=== PATIENT | female | born 1980 | race Caucasian/White ===

== ENCOUNTER 2016-11-07 18:38 | Emergency (ER) | payer SELFPAY ==
[~2016-11-07] VITALS: Ht 162.6 cm; Wt 79.5 kg
[~2016-11-07 18:38] MED LIST: CYCL-36 PO; HYDR-3533 PO
[2016-11-07 18:41] VITALS: BP 165/77; PULSE 110; RESP 14; TEMP 97.6; O2SAT 98
--- NOTE | 2016-11-07 18:54 | PD ---
HPI Chief Complaint: Injury Time Seen by Provider: 18:52 Travel History International Travel<30 days: No Contact w/Intl Traveler<30days: No Traveled to known affect area: No History of Present Illness HPI 36-year-old female presents to the emergency department for evaluation of left ankle and foot injury that occurred today. Patient states that she twisted her ankle and fell. She denies any other injury. No head injury or LOC. No neck pain or back pain. No chest pain or abdominal pain. No vomiting. Patient denies any chronic medical problems or taking any prescribed medications. PFSH Past Medical History Diabetes: No Diminished Hearing: No Immunizations Current: Yes ?: Not LMP: 11/06/2016 : 2 Para: 1 : 1 Past Surgical History Section: Yes Gynecologic Surgery: Yes (C SECTIONS) Hysterectomy: No (TUBES TIED) Social History Alcohol Use: Yes (1-2 times per month) Tobacco Use: No (quit 1 mo ago) Substance Use: No Allergies-Medications (Allergen,Severity, Reaction): Coded Allergies: Penicillin (Verified Allergy, Severe, UNKNOWN, 05/14/16) Reported Meds & Prescriptions Reported Meds & Active Scripts Active No Active Prescriptions or Reported Medications Review of Systems Except as stated in HPI: all other systems reviewed are Neg Physical Exam Narrative GENERAL: Well-developed well-nourished female patient, afebrile. SKIN: Warm and dry. HEAD: Normocephalic. Atraumatic. EYES: No scleral icterus. No injection or drainage. NECK: Supple, trachea midline. No JVD or lymphadenopathy. CARDIOVASCULAR: Regular rate and rhythm without murmurs, gallops, or rubs. Left pedal pulse is 2+. Capillary refill is less than 2 seconds to the digits of the left foot. RESPIRATORY: Breath sounds equal bilaterally. No accessory muscle use. Lungs sounds clear to auscultation. GASTROINTESTINAL: Abdomen soft, non-tender, nondistended. MUSCULOSKELETAL: No cyanosis, or edema. Patient has tenderness over left medial , lateral, anterior ankle and left dorsal foot. Negative Hebert's test. BACK: Nontender without obvious deformity. No CVA tenderness. Data Data Last Documented VS Vital Signs Date Time Temp Pulse Resp B/P Pulse Ox O2 Delivery O2 Flow Rate FiO2 11/07/16 18:41 97.6 110 14 165/77 98 Room Air Orders Foot, Complete (Jpw4esp) (11/07/16 ) Ankle, Complete ([id number]) (11/07/16 ) Acetamin-Hydrocod 325-5 Mg ([place] 5-325 (11/07/16 19:00) MDM Medical Decision Making Medical Screen Exam Complete: Yes Emergency Medical Condition: Yes Medical Record Reviewed: Yes Differential Diagnosis Sprain versus fracture versus contusion versus dislocation Narrative Course 36-year-old female presents to the emergency department for evaluation of left ankle and foot injury. X-ray left ankle and left foot are ordered and pending. X-ray of the left ankle and left foot were read by my attending physician, Dr. Ochoa. No acute abnormality is seen on x-ray. Patient is placed in a velcro ankle splint and given crutches. She will be discharged with a prescription for Ibuprofen. She is instructed to ice and elevate. She is to follow up with a primary care physician or orthpedist if pain continues or worsens. Diagnosis Primary Impression: Left ankle sprain Qualified Code: S93.402A - Sprain of left ankle, unspecified ligament, initial encounter Referrals: Primary Care Physician call for appointment Patient Instructions: Ankle Sprain (ED), General Instructions Additional Instructions: Elevate. Ice for 20 mins 4-5 times daily. Take Ibuprofen as directed as needed with food for pain. Wear splint and use crutches as needed. Follow up with a primary care physician. Return to the emergency department for any acute, worsening of symptoms. Med/Other Pt SpecificInfo: Prescription(s) given Scripts Ibuprofen 600 Mg [id number] Mg PO TID PRN (PAIN SCALE 1 TO 10) #21 TAB Ref 0 Prov:Maegan Medina 11/07/16 Disposition: 01 DISCHARGE HOME Condition: Stable Maegan Medina Nov 07, 2016 18:54
[2016-11-07] MEDS ORDERED: ACETAMINOPHEN/HYDROcodone 325 MG/5 MG TAB PO ONE (19:00)
[2016-11-07] MEDS ORDERED: IBUP-232 PO (19:56)
--- NOTE | 2016-11-07 20:17 | RADRPT ---
EXAM DATE/TIME: 11/07/2016 19:06 [facility] COMPARISON: No previous studies available for comparison. INDICATIONS : Patient fell this afternoon. She stepped off curb and twisted her leg. MEDICAL HISTORY : None. SURGICAL HISTORY : None. ENCOUNTER: Initial ACUITY: 1 day PAIN SCORE: 10/10 LOCATION: Left Foot. FINDINGS: Three view examination of the left foot demonstrates no soft tissue swelling, dislocation, or fractur e. The tarsal bones appear intact. The interphalangeal and metatarsophalangeal joints are intact. The calcaneus is intact. Bony mineralization is normal. CONCLUSION: 1. No acute findings. Roly Velazquez MD on November 07, 2016 at 20:14 Board Certified Radiologist. This report was verified electronically.
--- NOTE | 2016-11-07 20:19 | RADRPT ---
EXAM DATE/TIME: 11/07/2016 19:08 [facility] COMPARISON: No previous studies available for comparison. INDICATIONS : Patient fell this afternoon. She stepped off curb and twisted her leg. MEDICAL HISTORY : None. SURGICAL HISTORY : None. ENCOUNTER: Initial ACUITY: 1 day PAIN SCORE: 10/10 LOCATION: Left Ankle. FINDINGS: Three view exam was performed of the left ankle. The bony structures are in normal alignment. No ev idence of fracture, dislocation, or soft tissue swelling. The ankle mortise is intact. No radiopaqu e foreign bodies are seen. Bony mineralization is normal. CONCLUSION: 1. Soft tissue swelling over the lateral malleolus. No acute fracture. Roly Velazquez MD on November 07, 2016 at 20:15 Board Certified Radiologist. This report was verified electronically.
== END 2016-11-07 20:26 | disposition home or self-care (01) ==
LOC: NEPC 18:38
DX: S93.402A Sprain of unspecified ligament of left ankle, initial encounter (principal); W19.XXXA Unspecified fall, initial encounter; X50.1XXA Overexertion from prolonged static or awkward postures, initial encounter
CPT/HCPCS: 73610; 73630; 99283; E0113; L1906

== ENCOUNTER 2017-07-30 10:35 | Emergency (ER) | payer SELFPAY ==
[~2017-07-30] VITALS: Ht 162.6 cm; Wt 86.0 kg
[~2017-07-30 10:35] MED LIST changes: -CYCL-36 PO; -HYDR-3533 PO; +IBUP-232 PO
[2017-07-30 10:47] VITALS: BP 131/86; PULSE 84; RESP 16; TEMP 97.8; O2SAT 98
[2017-07-30] MEDS ORDERED: ORPHENADRINE CITRATE 100 MG SUSTAINED RELEASE TAB PO ONE (11:45)
[2017-07-30] MEDS ORDERED: IBUPROFEN 800 MG TAB PO ONE (11:45)
--- NOTE | 2017-07-30 12:03 | PD ---
HPI . Right mid back pain Chief Complaint: Musculoskeletal Complaint Time Seen by Provider: 11:11 Travel History International Travel<30 days: No Contact w/Intl Traveler<30days: No Traveled to known affect area: No History of Present Illness HPI 37-year-old female patient presents to the emergency department for evaluation of right lateral mid back pain. The pain is proximal to the scapula. There is no midline spinal tenderness. Patient denies any falls, traumas, injuries to this site. Patient reports she woke up this morning with the pain. Patient denies any fevers, chills, shortness breath, chest pain, abdominal pain, nausea , vomiting, diarrhea. Patient denies any incontinence of urine or stool. Patient denies any IV drug use. PFSH Past Medical History Diabetes: No Diminished Hearing: No Immunizations Current: Yes : 2 Para: 1 : 1 Tubal Ligation: Yes Past Surgical History Section: Yes Gynecologic Surgery: Yes (C SECTIONS) Social History Alcohol Use: Yes (once weekly) Tobacco Use: Yes (2 cig per day) Substance Use: No Allergies-Medications (Allergen,Severity, Reaction): Coded Allergies: penicillin G (Unverified Allergy, Severe, UNKNOWN, 07/30/17) Reported Meds & Prescriptions Reported Meds & Active Scripts Active Ibuprofen 600 Mg Tab 600 Mg PO TID PRN Review of Systems Except as stated in HPI: all other systems reviewed are Neg Physical Exam Narrative GENERAL: Well-nourished, well-developed 37-year-old female patient in no acute distress. Resting comfortably on the stretcher drinking a coffee. Nontoxic appearing. SKIN: Focused skin assessment warm/dry. No ecchymosis, cyanosis or erythema. HEAD: Normocephalic. Atraumatic. NECK: Supple, trachea midline. No JVD or lymphadenopathy. CARDIOVASCULAR: Regular rate and rhythm without murmurs, gallops, or rubs. RESPIRATORY: Breath sounds equal bilaterally. No accessory muscle use. GASTROINTESTINAL: Abdomen soft, non-tender, nondistended. MUSCULOSKELETAL: Full range of motion in all extremities. No cyanosis, or edema. BACK: Right lateral thoracic region tenderness to palpation. No obvious deformity, ecchymosis, erythema or cyanosis. No midline tenderness. No CVA tenderness. Data Data Last Documented VS Vital Signs Date Time Temp Pulse Resp B/P (MAP) Pulse Ox O2 Delivery O2 Flow Rate FiO2 11/1/17 10:47 97.8 84 16 131/86 (101) 98 Orders Orders Orphenadrine Sr (Norflex Cr) (07/30/17 11:45) Ibuprofen (Motrin) (07/30/17 11:45) Ed Discharge Order (07/30/17 12:04) [facility] Medical Decision Making Medical Screen Exam Complete: Yes Emergency Medical Condition: Yes Differential Diagnosis Differential diagnoses include but not limited to muscular strain, muscular sprain, contusion Narrative Course 37-year-old female presented to the emergency department for evaluation of right lateral thoracic region back pain. Patient has no midline spinal tenderness. There is no signs of obvious trauma such as ecchymosis, erythema, deformity. Patient denies any falls, injuries or traumas to the area. Patient states she woke up this morning with pain. The pain is proximal to the right scapula. Patient denies any paresthesias, incontinence of urine or stool, fevers or chills. Patient denies any IV drug use. Patient offered an IM injection of Norflex and Toradol. Patient becomes hysterical saying she doesn' t like needles. Patient then offered by mouth muscle relaxer and NSAID in lieu. Patient accepts the treatment plan. Patient will be discharged home with instructions to use [id number] ibuprofen for pain management, heating pads and to follow-up with primary care. Diagnosis Primary Impression: Back pain Qualified Codes: M54.6 - Pain in thoracic spine Referrals: Primary Care Physician Patient Instructions: Back Pain (ED), General Instructions Additional Instructions: Please return to emergency department if your symptoms return or worsen. Follow up with your primary care provider. May use [id number] ibuprofen as needed for pain or swelling. Disposition: 01 DISCHARGE HOME Condition: Stable Emily Olvera AMRIAA Jul 30, 2017 12:03
== END 2017-07-30 12:22 | disposition home or self-care (01) ==
LOC: PHED 10:35 → PHEFT 12:22
DX: M54.6 Pain in thoracic spine (principal); F17.210 Nicotine dependence, cigarettes, uncomplicated
CPT/HCPCS: 99283

== ENCOUNTER 2017-10-13 11:30 | Emergency (ER) | payer OTHER ==
[2017-10-13] MEDS: PROPARACAINE HCL 0.5% OPHT SOLN 15 ML BTL EACH EYE (12:49)
== END 2017-10-13 13:42 | disposition home or self-care (01) ==
LOC: PHEFT 11:30
DX: H01.001 Unspecified blepharitis right upper eyelid (principal); Z72.0 Tobacco use
CPT/HCPCS: 99283